=== PATIENT | male | born 1995 | race Caucasian/White ===

== ENCOUNTER 2016-10-03 19:49 | Emergency (ER) | payer MEDICAID ==
[2016-10-03] MEDS ORDERED: FAMOTIDINE IN SALINE, ISO-OSM 50 ML IV ONE (20:08)
[2016-10-03] MEDS ORDERED: METHYLPREDNISOLONE SOD 125 MG/2 ML VIAL ONE (20:08)
[2016-10-03] MEDS ORDERED: predniSONE 10 MG TABLET PO ONE (22:13)
--- NOTE | 2016-10-03 22:15 | ER NURSING DOCUMENTATION ---
Nurse's Notes [facility] Name:Bandar Bryant Age:21 yrs Sex:Male :1995 Arrival Date:10/03/2016 Time:19:42 Bed1 Private MD: Diagnosis:Angioedema Presentation: 10/03 19:52 Presenting complaint: Patient states: Allergic reaction after eating dinner. C/O SOB, mk4 itching. 19:52 Acuity: BRIANA 3 mk4 19:52 Transition of care: Camp. Onset: The symptoms/episode began/occurred suddenly, 1 mk4 hour(s) ago. Anaphylaxis evaluation, SOB, itching, hives. Risk considerations: no risks identifed. 19:52 Method Of Arrival: Walk In [facility] Triage Assessment: 19:45 General: Appears distressed, uncomfortable, Behavior is appropriate for age, mk4 cooperative. Pain: Denies pain. EENT: No deficits noted. Neuro: Level of Consciousness is awake, alert, Oriented to person, place, time, event. Cardiovascular: Chest pain is denied. Respiratory: Airway is patent Trachea midline Respiratory effort is even, unlabored, Respiratory pattern is regular, symmetrical, Breath sounds are clear bilaterally. GI: No deficits noted. : No deficits noted. Derm: Skin is red, Rash noted that is itchy, hives present on bilat arms and stomach, back, face. Historical: - Allergies: No known drug Allergies; - Home Meds: 1. None - PMHx: None; - PSHx: None; - Tetanus: < 10 years. - Ebola Screening: : No symptoms or risks identified at this time. . - Immunization history: Flu Vaccine < 1 year. - Social history: Smoking status: Patient states was never smoker of tobacco. Screenin:55 Infectious Disease Risk None. Abuse screen: sarah. Nutritional screening: No deficits mk4 noted. Assessment: 20:44 See Triage Assessment done by same RN. 4 Vital Signs: 19:45 BP 104 / 67; Pulse 87; Resp 22; Temp 98.4; Pulse Ox 92% on R/A; Weight 65.77 kg; Height mk4 5 ft. 8 in. (172.72 cm); Pain 1/10; 20:45 BP 122 / 67; Pulse 100; Resp 17; Pulse Ox 93% ; Pain 0/10; mk4 22:12 BP 126 / 63; Pulse 88; Resp 16; Temp 98.2; Pulse Ox 97% on R/A; Pain 0/10; mk4 19:45 Body Mass Index 22.05 (65.77 kg, 172.72 cm) mk4 ED Course: 19:42 Patient arrived in ED. em3 19:44 Elmer Jimenez MD is Attending Physician. jm 19:48 Inserted saline lock: 20 gauge in right antecubital area. em3 19:52 Marilee Snow is Primary Nurse. mk4 19:53 Triage completed. mk4 19:55 Arm band placed on Bed in low position Call Light in Reach Side rails up x2. Family mk4 accompanied patient. 20:44 Valuables Remains with patient. Cardiac Monitoring On for Nurse Monitoring only. Pulse mk4 Ox - RN Monitoring Only NIBP On - RN Monitoring Only. Door closed. Noise minimized. Lights dimmed. Verbal reassurance given. Warm blanket given. Pillow given. Administered Medications: 19:45 Drug: Solu-MEDROL 125 mg; Route: IVP; Rate: 125 bolus; Infused Over: 2 mins; Site: left mk4 wrist; 22:10 Follow up: Response: No adverse reaction mk4 19:50 Drug: EPINEPHrine 1:1000 0.3 ml; Route: IM; Site: left thigh; mk4 22:09 Follow up: Response: No adverse reaction mk4 19:50 Drug: Pepcid 20 mg; Volume: 20 ml; Route: IVPB; Rate: 20 bolus; Infused Over: 15 mins; mk4 Site: right antecubital; Delivery: [place] [facility]; 22:10 Follow up: IV Status: Completed infusion; Infusion discontinued; IV Intake: 50ml mk4 22:10 Follow up: Response: No adverse reaction; Marked relief of symptoms mk4 20:40 Drug: NS 0.9% 1000 ml; Volume: 1000 ml; Route: IV; Rate: bolus; Infused Over: 45 mins; mk4 Site: right antecubital; Delivery: [place] [facility]ing; 22:09 Follow up: IV Status: Completed infusion; Infusion discontinued; IV Intake: 1000ml mk4 22:08 Drug: predniSONE 40 mg; Route: PO; mk4 22:10 Follow up: Response: No adverse reaction mk4 Intake: 22:09 IV: 1000ml; Total: 1000ml. mk4 22:10 IV: 50ml; Total: 1050ml. mk4 Outcome: 21:54 Discharge ordered by . monse 22:12 Discharged to home ambulatory. mk4 22:12 Condition: improved 22:12 Discharge Assessment: Patient awake, alert and oriented x 3. No cognitive and/or functional deficits noted. Patient verbalized understanding of disposition instructions. 22:12 Discharge instructions given to patient, Instructed on discharge instructions, follow up and referral plans. medication usage, Demonstrated understanding of instructions, Prescriptions given X 1. 22:14 Patient left the ED. mk4 Signatures: Elmer Jimenez MD MD jm Meiklejohn, Eric em3 King, Melody 4
--- NOTE | 2016-10-03 22:15 | ER PHYSICIAN DOCUMENTATION ---
Physician Documentation [facility] Name:Bandar Bryant Age:21 yrs Sex:Male :1995 Arrival Date:10/03/2016 Time:19:42 Bed1 Private MD: Elmer Brooks Disposition: 10/03/16 21:54 Discharged to Home/Self Care. Impression: Angioedema. - Condition is Good. - Discharge Instructions: ANAPHYLAXIS, General, ANGIOEDEMA. - Prescriptions for Prednisone 20 mg Oral Tablet - take 2 tablet by ORAL route once daily for 5 days; 10 tablet. - Medical Reconciliation form form. - Follow up: Private Physician; When: As needed; Reason: Continuance of care. - Problem is new. - Symptoms have improved. HPI: 10/03 21:06 This 21 yrs old Male presents to ER via Walk In with complaints of Allergic jm Reaction. 21:06 The patient presents with localized swelling, rash, swelling of the lips. Onset: The jm symptom(s)/episode began/occurred just prior to arrival. Associated signs and symptoms: Pertinent positives: hives, swelling. Possible causes: The patient has no known obvious cause for the symptoms. At home the patient or guardian has treated the symptoms with Benadryl. Severity of symptoms: in the emergency department the symptoms are unchanged. The patient has not experienced similar symptoms in the past. The patient has not recently seen a physician. Pt was playing football on [place] and did skid on the ground. He then went to [employer] where he noticed he was breaking out in a rash. He took 50 of Benadryl and decided to come in. He feels like his lips are swelling but he has no trouble speaking, breathing, or swallowing. . Historical: - Allergies: No known drug Allergies; - Home Meds: 1. None - PMHx: None; - PSHx: None; - Tetanus: < 10 years. - Ebola Screening: : No symptoms or risks identified at this time. . - Immunization history: Flu Vaccine < 1 year. - Social history: Smoking status: Patient states was never smoker of tobacco. ROS: 21:07 ENT: Positive for lip swelling. jm 21:07 Cardiovascular: Negative for chest pain. 21:07 Respiratory: Negative for cough, shortness of breath. 21:07 Skin: Positive for rash. 21:07 Allergy/Immunology: Positive for rash. 21:07 All other systems are negative. Exam: 21:08 Constitutional: The patient appears alert, awake. 21:08 Eyes: Periorbital structures: appear normal, Conjunctiva: normal. 21:08 ENT: Mouth: Lips: swollen. , Posterior pharynx: swelling, is not appreciated, Dental exam: normal. 21:08 Neck: Thyroid: appears normal, ROM/movement: is normal. 21:08 Cardiovascular: Rate: normal, Rhythm: regular. 21:08 Respiratory: Respirations: normal, Breath sounds: are normal. 21:08 Abdomen/GI: Inspection: abdomen appears normal, Palpation: abdomen is soft and non-tender. 21:08 Musculoskeletal/extremity: Circulation is intact in all extremities. Sensation intact. 21:08 Skin: cellulitis, is not appreciated, rash can be described as raised, urticaria, on the right arm and left arm. 21:08 Neuro: Mentation: is normal, Memory: is normal. 21:08 Psych: Behavior/mood is pleasant, cooperative, anxious, Affect is calm. Vital Signs: 19:45 BP 104 / 67; Pulse 87; Resp 22; Temp 98.4; Pulse Ox 92% on R/A; Weight 65.77 kg; Height mk4 5 ft. 8 in. (172.72 cm); Pain 1/10; 20:45 BP 122 / 67; Pulse 100; Resp 17; Pulse Ox 93% ; Pain 0/10; mk4 22:12 BP 126 / 63; Pulse 88; Resp 16; Temp 98.2; Pulse Ox 97% on R/A; Pain 0/10; mk4 19:45 Body Mass Index 22.05 (65.77 kg, 172.72 cm) mk4 MDM: 19:44 Patient medically screened. 21:09 Differential diagnosis: anaphylaxis, angioedema, urticaria. Data reviewed: vital signs, nurses notes, and as a result, I will discharge patient, continue to observe the patient. Counseling: I had a detailed discussion with the patient and/or guardian regarding: the historical points, exam findings, and any diagnostic results supporting the discharge/admit diagnosis, the need for outpatient follow up, with the patient's primary care provider, an allergy/correspondence specialist. Medication response: The patient's symptoms have resolved. ED course: Pt immediately given epi. Solu-Medrol and Pepcid also given. Pt already had Benadryl. Pt observed for 2 hours total and continues to improve. We will given 40 of prednisone and given pt a burst for home. Pt should f/u w visitor services specialist, as we were unable to determine the cause. . 10/03 19:44 Order name: Continuous Cardiac Monitoring; Complete Time: 22:10 10/03 19:44 Order name: Pulse Ox Continuous; Complete Time: 22:10 10/03 19:44 Order name: Iv Saline Lock; Complete Time: 22:10 Dispensed Medications: 19:45 Drug: Solu-MEDROL 125 mg; Route: IVP; Rate: 125 bolus; Infused Over: 2 mins; Site: left 4 wrist; 22:10 Follow up: Response: No adverse reaction mk4 19:50 Drug: EPINEPHrine 1:1000 0.3 ml; Route: IM; Site: left thigh; mk4 22:09 Follow up: Response: No adverse reaction mk4 19:50 Drug: Pepcid 20 mg; Volume: 20 ml; Route: IVPB; Rate: 20 bolus; Infused Over: 15 mins; mk4 Site: right antecubital; Delivery: [place] Tubing; 22:10 Follow up: IV Status: Completed infusion; Infusion discontinued; IV Intake: 50ml mk4 22:10 Follow up: Response: No adverse reaction; Marked relief of symptoms mk4 20:40 Drug: NS 0.9% 1000 ml; Volume: 1000 ml; Route: IV; Rate: bolus; Infused Over: 45 mins; mk4 Site: right antecubital; Delivery: [place] Tubing; 22:09 Follow up: IV Status: Completed infusion; Infusion discontinued; IV Intake: 1000ml 4 22:08 Drug: predniSONE 40 mg; Route: PO; mk4 22:10 Follow up: Response: No adverse reaction mk4 Signatures: Elmer Jimenez MD MD jm King, Melody mk4
== END 2016-10-03 22:15 | disposition home or self-care (01) ==
LOC: ER 19:49
DX: T78.3XXA Angioneurotic edema, initial encounter (principal)
CPT/HCPCS: 96365; 96366; 96372; 96375; 99283; J0171; J2930; J7512